=== PATIENT | male | born 1960 | race Caucasian/White ===

== ENCOUNTER 2025-09-01 10:15 | Emergency (ER) | payer BC, SELFPAY ==
[2025-09-01 10:20] VITALS: BP 154/90
--- NOTE | 2025-09-01 11:23 | ED.GENMED ---
History of Present Illness
General
Chief Complaint: Cardiac Symptoms
Source: patient
Exam Limitations: none
Time Seen by Provider: 09/01/25 11:18
Nursing documentation reviewed up to this point in time: agreed with
History of Present Illness
History of Present Illness:
65 yo male with no significant PMHX presents with a history of intermittent pains across shoulders for the last four to five days. The patient describes the pain as radiating from one side of the shoulder to the other and notes that it occurs
multiple times throughout the day without any specific trigger. He initially dismissed similar symptoms two weeks ago as indigestion. The patient reports managing the discomfort by taking chewable aspirin, specifically four doses of low-dose (81 mg)
aspirin daily, stating that it provides some relief. No specific activities or dietary factors appear to exacerbate or alleviate the symptoms. He denies any current pain and mentions an episode yesterday that involved discomfort in the upper right
arm lasting five to 30 minutes. No recollection of overuse or injury. No associated symptoms such as SOB, sweating, nausea, lightheadedness.
Past History
Past History
ED Past Medical History: None and Other (Gout, takes no medication)
ED Past Surgical History: Other (Hernia repair 2019)
Social History
Tobacco: Non-smoker
Alcohol: Occasional
Personal:
Living: with family
Employment: Employed
Review of Systems
Review of Systems
Allergies reviewed?: Yes
All Other Systems: ROS reviewed and negative except as documented in HPI and ROS
Constitutional: Denies fever or fatigue
Respiratory: Denies trouble breathing
Cardiac: Reports chest pain; Denies diaphoresis, palpitations or syncope
ABD/GI: Denies abdominal pain or nausea
Musculoskeletal: Reports other (Intermittent pains across shoulders)
Skin: Reports no symptoms
Neurological: Reports no symptoms
Phy Exam
Physical Exam
Physical Exam:
GENERAL: No acute distress. A&Ox3.
CONSTITUTIONAL: Afebrile.
EYES: clear, conjunctivae normal
ENMT: moist mucus membranes, Pharynx nl
RESPIRATORY: Regular respirations, nonlabored, lungs clear.
CARDIOVASCULAR: Regular rate and rhythm, no murmurs, no rubs.
GI: Soft, nontender, normal BS
MUSCULOSKELETAL: Moves with ease. Well perfused.
SKIN: Warm, dry, pink
PSYCH: Normal mood and affect. Well kept, interactive and appropriate
NEUROLOGIC: Awake, alert and oriented. No focal neurological deficits
Course
Orders/Labs/Results
Orders:
Orders
09/01/25 10:18
Electrocardiogram (*1) Urgent
Reason for Study: Other
Other Reason for Exam: Arm pain
EKG- Treatment ONCE
09/01/25 11:35
CR Chest - 2 Views Urgent
Comment:
Reason For Exam: chest pain
09/01/25 11:45
Complete Blood Count/With Diff Urgent
Comprehensive Metabolic Panel Urgent
Magnesium Urgent
Troponin I Urgent
09/01/25 14:26
ECG [Electrocardiogram (*1)] Urgent
Reason for Study: Chest Pain
Other Reason for Exam: serial troponin
EKG- Treatment ONCE
09/01/25 14:41
Troponin I Urgent
Abnormal Lab Results
09/01/25
11:45
RBC 6.63 H 10^6/uL
(4.70-6.10)
MCV 69.4 L fL
(80.0-94.0)
MCH 21.4 L pg
(27.0-31.0)
MCHC 30.9 L g/dL
(33.0-37.0)
RDW 17.6 H %
(11.5-14.5)
MPV 10.8 H fL
(7.4-10.4)
Lymphocytes % 20.1 L %
(20.5-51.1)
Albumin 5.1 H g/dl
(3.5-5.0)
09/01/25 11:45
09/01/25 11:45
Vital Signs
Initial and Last Documented VS:
Initial Vital Signs
Temp Pulse Resp BP Pulse Ox
97.4 F 73 16 154/90 98
09/01/25 10:20 09/01/25 10:20 09/01/25 10:20 09/01/25 10:20 09/01/25 10:20
Last Documented Vital Signs
Temp Pulse Resp BP Pulse Ox
97.4 F 59 12 128/87 97
09/01/25 10:20 09/01/25 13:00 09/01/25 13:00 09/01/25 13:00 09/01/25 13:00
MDM/Problems Addressed
Differential Diagnosis Includes:
Stable angina, ACS, musculoskeletal pain, GERD, costochondritis
MDM/Problems Addressed:
65 yo male with no significant PMHX presents with a history of intermittent pains across shoulders for the last four to five days. The patient describes the pain as radiating from one side of the shoulder to the other and notes that it occurs
multiple times throughout the day without any specific trigger. He initially dismissed similar symptoms two weeks ago as indigestion. The patient reports managing the discomfort by taking chewable aspirin, specifically four doses of low-dose (81 mg)
aspirin daily, stating that it provides some relief. No specific activities or dietary factors appear to exacerbate or alleviate the symptoms. He denies any current pain and mentions an episode yesterday that involved discomfort in the upper right
arm lasting five to 30 minutes. No recollection of overuse or injury. No associated symptoms such as SOB, sweating, nausea, lightheadedness.
EKG: Sinus bradycardia at rate of 59
12:45 PM:
CBC with no clinically significant abnormality
CMP normal
Troponin 0.032.
CXR NAD
Patient's story is slightly more suspicious/concerning for possible stable angina, will recheck a second troponin.
3:15 p.m.
Back in to re evaluate pt: He states he thinks stress is playing a part in his symptoms as he started looking at emails here and symptoms started. He is very stressed at work. He thinks it may be indigestion.
Troponin #2 0.030
Pt stable for discharge. Referred to cardiology hotline.
*Pulse Oximetry
SaO2: 98
Oxygen Mode of Delivery: Room air
Patient hypoxic: no
*EKG
EKG Intrepretation Date: 09/01/25
Interpretation: normal
Heart Rate: 59
Rate: bradycardiac
Rhythm: sinus
[place]: normal axis
Interval: normal interval
QRS Pattern: normal QRS
Ischemia: no ischemia
*Critical Care Note
Total Time (30-74mins, 75-104mins- exclusive of procedures): Not Applicable
ED Attending Note
-
Portions of this chart may have been created with voice recognition software.� Occasional wrong word or��sound alike� substitutions may have occurred due to the inherent limitations of voice recognition software.
Discharge Plan
Departure
Patient Disposition: Home (Routine Discharge)
Date of Disposition: 09/01/25
Time of Disposition: 15:15
Patient with high blood pressure during this ER visit?: No
Condition: Good
Discharge Problem:
Atypical chest pain
Instructions: Acid reflux and GERD in adults - ED (DC), Chest Pain DCA Follow Up
Prescriptions:
No Action
aspirin 81 mg Tablet
81 mg PO DAILYPRN PRN (Reason: mild pain)
Rx Instructions:
[09/01/25: reports has been taking for a few days, last this am.]
Referrals:
Whitney Don, DO [Active, Cardiology] - Next open appointment
UNKNOWN - PT NOT,INTERVIEWE [Family Provider]
Activity Restrictions/Additional Instructions:
As we discussed, nothing worrisome in your workup here today, specifically no indication of a heart attack.
Someone from the cardiology group should be calling you within the next few days to set up an appointment sooner rather than later for a more thorough cardiac evaluation.
You may try Omeprazole to see if it helps indigestion
Interventions
Interventions:
*Risk Screen - Suicide Last Done: 09/01/25 10:20
*General Assessment Last Done: 09/01/25 10:20
*Neglect/Abuse Screening Last Done: 09/01/25 10:20
*Nursing Disposition Last Done: 09/01/25 15:43
ED- Pulmonary Assessment Last Done: 09/01/25 11:45
ED- Cardiac Assessment Last Done: 09/01/25 11:45
Discharge Date and Time
Discharge Date/Time: 09/01/25 15:43
Print Language: JAPANESE
[2025-09-01 11:41] VITALS: BP 160/91
[2025-09-01 11:45] VITALS: BMI 27.9
[2025-09-01 12:06] LABS: Hematocrit 46.0 % (39.0-52.0); Hemoglobin 14.2 g/dL (13.0-18.0); Mean Corp Hgb Conc. 30.9 g/dL (33.0-37.0); Mean Corpuscular Volume 69.4 fL (80.0-94.0); Nucleated Red Blood Cells % 0 % (-); Platelet Count 213 10^3/uL (130-400); Red Cell Dist. Width 17.6 % (11.5-14.5)
[2025-09-01 12:14] LABS: ALT (SGPT) 41 U/L (0-50); AST (SGOT) 29 U/L (17-59); Albumin 5.1 g/dl (3.5-5.0); Alkaline Phosphatase 46 U/L (38-126); Blood Urea Nitrogen 14 mg/dl (9-20); Calcium 9.5 mg/dl (8.4-10.2); Carbon Dioxide 27 mmol/L (22-30); Chloride 105 mmol/L (98-107); Estimated Creatinine Clearance 79 ml/min; Glucose 94 mg/dl (70-99); Magnesium 2.1 mg/dl (1.6-2.3); Potassium 4.6 mmol/L (3.5-5.1); Sodium 139 mmol/L (135-145); Total Protein 8.0 g/dl (6.3-8.2); eGFR > 60.00
[2025-09-01 12:27] LABS: Troponin I 0.032 ng/ml
[2025-09-01 13:00] VITALS: BP 128/87
[2025-09-01 15:10] LABS: Troponin I 0.030 ng/ml
== END 2025-09-01 15:43 | disposition home or self-care (01) ==
LOC: EMR 10:15
PROVIDERS: Registered Nurse; EMERGENCY PHYSICIAN Emergency Medicine
DX: R07.89 Other chest pain (principal); Z79.82 Long term (current) use of aspirin
CPT/HCPCS: 99285; 71046; 80053; 83735; 84484; 85025; 93005